=== PATIENT | male | born 1945 | race Caucasian/White ===

== ENCOUNTER 2016-12-31 10:22 | Emergency (ER) | payer MEDICAID ==
[~2016-12-31] VITALS: Ht 165.1 cm; Wt 82.5 kg
[2016-12-31 10:33] VITALS: Ht 165.1 cm; Wt 82.5 kg
[2016-12-31] MEDS ORDERED: CICL12.52 NASAL (11:28)
[2016-12-31] MEDS ORDERED: ATOR40TA68 PO (11:29)
[2016-12-31] MEDS ORDERED: TAMS-14 PO (11:29)
[2016-12-31] MEDS ORDERED: MONT10TA21 PO (11:29)
[2016-12-31] MEDS ORDERED: COU5 PO (11:30)
[2016-12-31] MEDS ORDERED: METF850T PO (11:30)
[2016-12-31] MEDS ORDERED: LISI40TA9 PO (11:31)
[2016-12-31] MEDS ORDERED: AMLO5TAB4 PO (11:31)
[2016-12-31] MEDS ORDERED: BECL8.7A5 INH (11:32)
[2016-12-31] MEDS ORDERED: DIGO250T PO (11:32)
[2016-12-31 11:33] LABS: ADD SCAN DIFF NO
[2016-12-31] MEDS ORDERED: ALBU8.5H3 INH (11:33)
[2016-12-31 11:38] LABS: BASOPHIL # 0.1 10^3/ul (0.0-0.1); BASOPHILS % 0.6 % (0.0-2.0); EOSINOPHILS # 0.1 10^3/ul (0.0-0.5); EOSINOPHILS % 1.8 % (0.0-7.0); HEMATOCRIT 43.9 % (42.0-52.0); HEMOGLOBIN 15.2 g/dl (14.0-18.0); LYMPHOCYTES # 2.3 10^3/ul (0.8-2.9); LYMPHOCYTES % 28.8 % (15.0-51.0); MEAN CORPUSCULAR HEMOGLOBIN 32.1 pg (29.0-33.0); MEAN CORPUSCULAR HGB CONC 34.6 g/dl (32.0-37.0); MEAN CORPUSCULAR VOLUME 92.6 fl (82.0-101.0); MEAN PLATELET VOLUME 10.7 fl (7.4-10.4); MONOCYTE # 0.8 10^3/ul (0.3-0.9); MONOCYTES % 9.7 % (0.0-11.0); NEUTROPHIL # 4.6 10^3/ul (1.6-7.5); NEUTROPHILS % 58.7 % (39.0-77.0); PLATELET COUNT 236 10^3/UL (140-415); RED BLOOD COUNT 4.74 10^6/ul (4.70-6.10); RED CELL DISTRIBUTION WIDTH 12.3 % (11.5-14.5); WHITE BLOOD COUNT 7.9 10^3/ul (4.8-10.8)
[2016-12-31 12:11] LABS: ANION GAP 15 (8-16); BLOOD UREA NITROGEN 14 mg/dl (7-20); CALCIUM 9.3 mg/dl (8.4-10.2); CARBON DIOXIDE 26 mmol/L (21-31); CHLORIDE 106 mmol/L (97-110); CREATININE 0.76 mg/dl (0.61-1.24); GLUCOSE 147 mg/dl (70-220); POTASSIUM 3.9 mmol/L (3.5-5.1); SODIUM 143 mmol/L (135-144)
[2016-12-31 12:23] LABS: PROTIME 63.4 Sec (12.2-14.2)
--- NOTE | 2016-12-31 12:23 | RADRPT ---
PROCEDURE: Chest x-ray CLINICAL INDICATION: Chest pain TECHNIQUE: Chest single view COMPARISON: None FINDINGS: The heart is mildly enlarged in size. The pulmonary vessels are normal in caliber. The lungs are cl ear. The costophrenic angles are sharp. The visualized bony thorax is unremarkable. IMPRESSION: No acute cardiopulmonary disease. Mild cardiomegaly RPTAT: HH .Ray Loya MD, MD Date Time Electronically viewed and signed by .Ray Loya MD, MD on 12/31/2016 12:23 .W/
[2016-12-31 12:24] LABS: B-TYPE NATRIURETIC PEPTIDE 162 PG/ML (0-125)
[2016-12-31 12:29] LABS: TROPONIN-I < 0.012 ng/ml (0.00-0.12)
[2016-12-31 12:50] LABS: INR 7.22; PARTIAL THROMBOPLASTIN TIME 88.7 Sec (25.0-35.0)
--- NOTE | 2016-12-31 13:45 | ERD ---
ER Documentation Chief Complaint Date/Time DATE: 12/31/16 TIME: 13:42 Chief Complaint sent yesterday by his PMD is on coumadin has been having bruising on [place] HPI This is a 71-year-old male who presents to the emergency room for evaluation of bruising on his abdomen. This patient does state that he was told by his primary care physician that his INR was high. He is on Coumadin for atrial fibrillation. He is denying any chest pain, shortness of breath, palpitations, headache, dizziness, nausea or vomiting at this time. He came to the ER for evaluation of his "Coumadin level" ROS All systems reviewed and are negative except as per history of present illness. Medications Home Meds Reported Medications Albuterol Sulfate* (Proair HFA*) 8.5 Gm Hfa.aer.ad, 2 PUFF INH Q6H Y for WHEEZING AND SOB, #1 INHALER 12/31/16 Beclomethasone Dip* (Qvar 80*) 7.3 Gm Inha, 1 PUFF INH BID, #1 INHALER 12/31/16 Digoxin* (Digitek*) 250 Mcg Tablet, 0.25 MG PO DAILY, TAB 12/31/16 Lisinopril* (Lisinopril*) 40 Mg Tablet, 40 MG PO BID, #30 TAB 12/31/16 Amlodipine Besylate* (Norvasc*) 5 Mg Tablet, 5 MG PO DAILY, TAB 12/31/16 Warfarin Sod (Coumadin) 5 Mg Tab, 5 MG PO DAILY, TAB 12/31/16 Metformin Hcl* (Metformin Hcl*) 850 Mg Tablet, 850 MG PO WITH BREAKFAST DINNE, # 30 TAB 12/31/16 Tamsulosin Hcl* (Flomax*) 0.4 Mg Cap.er.24h, 0.4 MG PO DAILY, CAP 12/31/16 Atorvastatin* (Atorvastatin*) 40 Mg Tablet, 40 MG PO QHS, #30 TAB 12/31/16 Montelukast Sodium* (Singulair*) 10 Mg Tablet, 10 MG PO QHS, #30 TAB 12/31/16 Ciclesonide (Omnaris) 12.5 Gm Friendship.pump, 2 SPRAYS NASAL DAILY, #1 BOTTLE 12/31/16 Allergies Allergies: Coded Allergies: No Known Allergy (Unverified , 12/31/16) PMhx/Soc History of Surgery: Yes (appy) Anesthesia Reaction: No Hx Neurological Disorder: No Hx Respiratory Disorders: No Hx Psychiatric Problems: No Hx Miscellaneous Medical Probl: Yes (diabetes) Hx Alcohol Use: Yes Hx Substance Use: No Hx Tobacco Use: No Smoking Status: Former smoker Physical Exam Vitals Vital Signs Date Time Temp Pulse Resp B/P Pulse Ox O2 Delivery O2 Flow Rate FiO2 12/31/16 10:33 97.3 64 18 163/101 97 Physical Exam INITIAL VITAL SIGNS: Reviewed by me GENERAL: The patient is well developed and appropriate for usual state of health in no apparent distress HEENT: Pupils equal, round, and reactive to light. EOMI. There is no scleral icterus. NECK: C-spine is soft and supple, there is no meningismus. There is no cervical lymphadenopathy. LUNGS: Clear to auscultation bilaterally. There are no rales, wheezes or rhonchi. HEART irregularly irregular rhythm, no murmurs, clicks, rubs or gallops. ABDOMEN: Soft, non-tender, non-distended. There are bowel sounds in all four quadrants. No rebound or guarding. EXTREMITIES: There is no peripheral cyanosis or edema. No focal swelling or erythema. NEUROLOGICAL: The patient moves all four extremities with 5/5 strength. Cranial nerves II - XII are intact. Normal gait. Alert and oriented SKIN: Ecchymosis over her abdomen there is no apparent rash or petechiae. HEME/LYMPHATIC: There is no evidence of excessive bruising or lymphedema. PSYCHIATRIC: The patient does not appear anxious or depressed. Result Diagram: 12/31/16 1104 12/31/16 1104 Results 24 hrs Laboratory Tests Test 12/31/16 11:04 White Blood Count 7.910^3/ul Red Blood Count 4.7410^6/ul Hemoglobin 15.2g/dl Hematocrit 43.9% Mean Corpuscular Volume 92.6fl Mean Corpuscular Hemoglobin 32.1pg Mean Corpuscular Hemoglobin Concent 34.6g/dl Red Cell Distribution Width 12.3% Platelet Count 73184^3/UL Mean Platelet Volume 10.7fl Neutrophils % 58.7% Lymphocytes % 28.8% Monocytes % 9.7% Eosinophils % 1.8% Basophils % 0.6% Nucleated Red Blood Cells % 0.0/100WBC Neutrophils # 4.610^3/ul Lymphocytes # 2.310^3/ul Monocytes # 0.810^3/ul Eosinophils # 0.110^3/ul Basophils # 0.110^3/ul Nucleated Red Blood Cells # 0.010^3/ul Prothrombin Time 63.4Sec Prothrombin Time Ratio 5.0 INR International Normalized Ratio 7.22 Activated Partial Thromboplast Time 88.7Sec Sodium Level 143mmol/L Potassium Level 3.9mmol/L Chloride Level 106mmol/L Carbon Dioxide Level 26mmol/L Anion Gap 15 Blood Urea Nitrogen 14mg/dl Creatinine 0.76mg/dl Glucose Level 147mg/dl Calcium Level 9.3mg/dl Troponin I < 0.012ng/ml B-Type Natriuretic Peptide 162PG/ML Procedures/MDM Chest X-ray 1V Interpreted by me: Soft Tissue: No acute abnormalities Bones: No acute abnormalities Mediastinum/Cardiac Silhouette/Lungs: [No acute abnormalities] EKG: Rate/Rhythm: Atrial fibrillation QRS, ST, T-waves: [No changes consistent w/ acute ischemia] Impression: [No evidence of ischemia or arrhythmia] This is a 71-year-old male presents to the emergency room for evaluation of elevated INR. The patient is on Coumadin 5 mg every other day for atrial fibrillation. When I evaluated this patient I did no ecchymosis on his abdomen. He did have rate controlled atrial fibrillation which is apparent on EKG. Lab work was obtained including an INR. INR 7.22 this patient has no signs of mucosal bleeding, no signs of rectal bleeding, and only mild ecchymosis on his abdomen. I advised the patient that he needs to discontinue the use of Coumadin for the next 48 hours. The patient does verbalize understanding and states that he has an appointment with his primary care physician tomorrow. I advised him to keep the appointment tomorrow and to return to the emergency room if he were to develop any signs of a spreading ecchymosis on the abdomen, any bleeding of the mucosal tissues, or any signs of bleeding whatsoever. Patient did verbalize understanding. Both him and his are comfortable with the plan of care for discharge at this time. My suspicion for any intraperitoneal or retroperitoneal hemorrhage is low as the patient does not have any ecchymosis over his flank and has no tenderness to palpation on my examination. This patient will be discharged at this time. Departure Diagnosis: Primary Impression: Supratherapeutic INR Additional Impression: Atrial fibrillation Condition: Stable DARÍO YEH DO Dec 31, 2016 13:45
[2016-12-31 13:59] VITALS: BP 136/93; PULSE 76; RESP 19; TEMP 98
== END 2016-12-31 14:06 | disposition home or self-care (01) ==
LOC: E/R 10:22
DX: R79.1 Abnormal coagulation profile (principal); I48.91 Unspecified atrial fibrillation; E11.9 Type 2 diabetes mellitus without complications; Z79.01 Long term (current) use of anticoagulants; Z79.84 Long term (current) use of oral hypoglycemic drugs; Z87.891 Personal history of nicotine dependence
CPT/HCPCS: 36415; 71010; 80048; 83880; 84484; 85025; 85610; 85730; 93005; Z7502; Z7610